=== PATIENT | male | born 1935 | race Caucasian/White ===

== ENCOUNTER 2020-02-08 08:38 | Emergency (ER) | payer OTHER ==
[~2020-02-08] VITALS: Ht 175.3 cm; Wt 83.9 kg
[2020-02-08] MEDS ORDERED: HYDROCHLOROTH12.5 M1 PO (08:47)
[2020-02-08] MEDS ORDERED: CORGARD20 M1 PO (08:51)
[2020-02-08] MEDS ORDERED: ACCUPRIL10 MG PO (08:51)
[2020-02-08] MEDS ORDERED: NEXIUM20 MG PO (08:52)
[2020-02-08] MEDS ORDERED: VASOTEC5 MG PO (08:52)
[2020-02-08] MEDS ORDERED: VITAMIN C500 M1 PO (08:53)
[2020-02-08] MEDS ORDERED: SUPER THERAVIT1 EACH PO (08:53)
[2020-02-08] MEDS ORDERED: LOW DOSE ASPIRI81 M1 PO (08:53)
[2020-02-08] MEDS ORDERED: VITAMIN E1000 UNIT PO (08:53)
[2020-02-08] MEDS ORDERED: SUPER BETA PROSTATE (08:54)
[2020-02-08] MEDS ORDERED: CIALIS5 MG PO (08:55)
[2020-02-08] MEDS ORDERED: NORCO 5-325 TA1 EAC2 PO (09:16)
[2020-02-08] MEDS ORDERED: FLEXERIL PO (09:16)
[2020-02-08 09:59] VITALS: BP 153/63
== END 2020-02-08 10:00 | disposition home or self-care (01) ==
LOC: M.ERS 08:38
DX: S46.811A Strain of other muscles, fascia and tendons at shoulder and upper arm level, right arm, initial encounter (principal); Z88.8 Allergy status to other drugs, medicaments and biological substances; X50.1XXA Overexertion from prolonged static or awkward postures, initial encounter; Y93.89 Activity, other specified; Y92.89 Other specified places as the place of occurrence of the external cause; Y99.8 Other external cause status